=== PATIENT | female | born 1975 | race Two or more races ===

== ENCOUNTER 2023-04-30 15:16 | Emergency (ER) | payer OTHER ==
[~2023-04-30] VITALS: Ht 160 cm; Wt 81.8 kg
[2023-04-30 17:00] VITALS: BP 139/78; PULSE 75; RESP 18; O2SAT 97
[2023-04-30] MEDS ORDERED: HYDROcodone-ACET 10/325MG TAB PO ONE (17:00)
[2023-04-30] MEDS ORDERED: KETOROLAC TROMETH 60MG/2ML VIAL IM ONE (17:00)
[2023-04-30] MEDS ORDERED: TRAM50TA2 PO (17:39)
[2023-04-30] MEDS ORDERED: PRED20TA2 PO (17:39)
== END 2023-04-30 17:44 | disposition home or self-care (01) ==
LOC: ER 15:16
DX: G89.29 Other chronic pain (principal); M54.50 Low back pain, unspecified
CPT/HCPCS: 96372; 99283; J1885